=== PATIENT | male | born 1930 | race Caucasian/White ===

== ENCOUNTER 2016-06-03 12:32 | Emergency (ER) | payer MEDICARE, BC ==
[~2016-06-03] VITALS: Ht 167.6 cm; Wt 83.0 kg
[~2016-06-03 12:32] MED LIST: ALPR0.254 PO; ATEN50TA PO; CLOP75TA PO; DONE5TAB7 PO; FINA5TAB4 PO; INSU100I13 SQ; INSU100V SQ; OMEP20TA PO; PITA4TAB2 PO; TRAM50TA PO
[2016-06-03 13:29] LABS: BASO % 1 % (0-3); EOS % 1 % (0-3); HEMATOCRIT 31.2 % (39.0-53.0); HEMOGLOBIN 10.9 g/dL (13.0-17.5); LYMPH # 0.6 x10^3/uL (1.0-4.8); LYMPH % 17 % (24-48); MEAN CORPUSCULAR HEMOGLOBIN 32 pg (25-35); MEAN CORPUSCULAR HGB CONC 35 g/dL (31-37); MEAN CORPUSCULAR VOLUME 91 fL (79-100); MONO % 13 % (0-9); NEUT % 68 % (31-73); PLATELET COUNT 179 x10^3/uL (140-400); RED BLOOD COUNT 3.44 x10^6/uL (4.30-5.70); RED CELL DISTRIBUTION WIDTH 14.1 % (11.5-14.5); WHITE BLOOD COUNT 3.8 x10^3/uL (4.0-11.0)
[2016-06-03 13:35] LABS: CALCIUM 9.7 mg/dL (8.5-10.1); GFR 71.4; POTASSIUM 4.1 mmol/L (3.5-5.1)
[2016-06-03 13:36] LABS: ALBUMIN 3.9 g/dL (3.4-5.0); DIRECT BILIRUBIN 0.2 mg/dL (0.0-0.2); TOTAL BILIRUBIN 0.7 mg/dL (0.2-1.0); TOTAL PROTEIN 7.4 g/dL (6.4-8.2)
--- NOTE | 2016-06-03 13:37 | EKG ---
[facility] [address] [place] [address] Test Date: 2016-06-03 Test Time: 13:18:36 Pat Name: JOVAN CRUZ Department: Room: Gender: M Attending Psychiatrist: : [id number] Requested By: OLIVE POOLE Order Number: [id number] Reading MD: Amy Brunner Measurements Intervals [place] Rate: 76 P: 0 [place]: 166 QRS: -28 QRSD: 94 T: 17 QT: 360 QTc: 409 Interpretive Statements SINUS RHYTHM LEFTWARD AXIS QRS(T) CONTOUR ABNORMALITY CONSISTENT WITH ANTEROSEPTAL INFARCT PROBABLY OLD RI6.01 Unconfirmed report No previous ECG available for comparison Electronically Signed On 06-05-2016 10:56:51 CDT by Amy Brunner
[2016-06-03] MEDS ORDERED: IV NORMAL SALINE 500ML BAG 500 ML IV ONE (14:00)
[2016-06-03] MEDS ORDERED: HYDROMORPHONE 2 MG/ML VIAL. IV PRN (14:00)
[2016-06-03] MEDS ORDERED: ONDANSETRON PF 4 MG/2 ML VIAL. IV ONE (14:00)
--- NOTE | 2016-06-03 14:01 | RAD ---
Renal ultrasound, 06/03/2016: History: Left flank pain The right kidney measures 11.8 cm in length while the left kidney measures 12.4 cm. There is no evidence of hydronephrosis or a renal mass. No abnormal perinephric process is seen. The partially filled urinary bladder is unremarkable. Note is made that a small hyperdense nodule was seen in the lower pole of the right kidney on an outside CT study from 12/18/2015. This lack of visualization on the current exam is likely on a technical basis. IMPRESSION: 1. No significant renal abnormality is detected sonographically. 2. Nonemergent multiphase CT scanning of the kidneys is suggested for further evaluation of the right renal lesion noted on the old outside CT exam.
[2016-06-03] MEDS ORDERED: IOHEXOL 350 MG/ML 100ML VIAL. IV ONE (14:15)
[2016-06-03] MEDS ORDERED: HYDR-2666 PO (14:32)
[2016-06-03] MEDS ORDERED: ONDA4TAB10 SL (14:32)
--- NOTE | 2016-06-03 14:32 | PHYS DOC ---
Past Medical History Past Medical History: COPD, Dementia, Diabetes-Type II, Other Additional Past Medical Histor: hemochromatosis, aortic stenosis Past Surgical History: Knee Replacement, Other Additional Past Surgical Histo: rotator cuff Additional Information: chew Alcohol Use: None Drug Use: None Adult General Chief Complaint Chief Complaint: FLANK PAIN HPI HPI 85-year-old male presenting to the emergency department today with flank pain on the left. The pain is moderate intermittent has been present for approximately 3 months. Family is here today and reports the patient has a history of a renal mass on the left. He was supposed to get an MRI however because of being close pain is was unable to finish. His pain is moderate. He denies it being a ripping or tearing pain. He denies abdominal pain. He denies a history of aneurysm. His pain is moderate nonradiating and alleviated with taking tramadol. Review of systems is negative for hematuria history of kidney stones. Negative for chest pain shortness of breath nausea or vomiting. All other review of systems is negative unless otherwise noted in history of present illness. Review of Systems Review of Systems SEE ABOVE. Current Medications Current Medications Current Medications Medications (Trade) Dose Ordered Sig/Darrian Start Time Stop Time Status Last Admin Dose Admin Hydromorphone HCl (Dilaudid) 0.5 mg PRN Q1HR PRN 06/03/16 14:00 06/03/16 23:59 06/03/16 14:06 0.5 MG Iohexol (Omnipaque 350 Mg/ml) 90 ml 1X ONCE 06/03/16 14:15 06/03/16 14:17 DC 06/03/16 14:28 90 ML Ondansetron HCl 4 mg 4 mg 1X ONCE 06/03/16 14:00 06/03/16 14:02 DC 06/03/16 14:06 4 MG Sodium Chloride (Iv Sodium Chloride 0.9% 500ml Bag) 500 ml @ 500 mls/hr 1X ONCE 06/03/16 14:00 06/03/16 14:59 06/03/16 14:05 500 MLS/HR Allergies Allergies Allergies Coded Allergies Type Severity Reaction Last Updated Verified Penicillins Allergy Intermediate Hives 12/25/15 Yes aspirin Allergy Intermediate Shortness of Air 12/25/15 Yes Physical Exam Physical Exam Constitutional: Well developed, well nourished, no acute distress, non-toxic appearance. HENT: Normocephalic, atraumatic, bilateral external ears normal, oropharynx moist, no oral exudates, nose normal. [] Eyes: PERRLA, EOMI, conjunctiva normal, no discharge. [] Neck: Normal range of motion, no tenderness, supple, no stridor. Cardiovascular:Heart rate regular rhythm, no murmur [] Lungs & Thorax: Bilateral breath sounds clear to auscultation [] Abdomen: Bowel sounds normal, soft, no tenderness, no masses, no pulsatile masses. Skin: Warm, dry, no erythema, no rash. [] Back: No tenderness, patient has mild tenderness palpation of the left CVA area. Nontender midline. No ecchymosis lacerations or abrasions present. No evidence of traumatic injury. Extremities: No tenderness, no cyanosis, no clubbing, ROM intact, no edema. [] Neurologic: Alert and oriented X 3, normal motor function, normal sensory function, no focal deficits noted. [] Psychologic: Affect normal, judgement normal, mood normal. Current Patient Data Vital Signs Vital Signs Date Time Temp Pulse Resp B/P Pulse Ox O2 Delivery O2 Flow Rate FiO2 06/03/16 13:59 74 17 154/81 99 Room Air 06/03/16 13:04 97.5 97.5 Lab Values Laboratory Tests Test 06/03/16 13:00 White Blood Count 3.8x10^3/uL (4.0-11.0) L Red Blood Count 3.44x10^6/uL (4.30-5.70) L Hemoglobin 10.9g/dL (13.0-17.5) L Hematocrit 31.2% (39.0-53.0) L Mean Corpuscular Volume 91fL (79-100) Mean Corpuscular Hemoglobin 32pg (25-35) Mean Corpuscular Hemoglobin Concent 35g/dL (31-37) Red Cell Distribution Width 14.1% (11.5-14.5) Platelet Count 179x10^3/uL (140-400) Neutrophils (%) (Auto) 68% (31-73) Lymphocytes (%) (Auto) 17% (24-48) L Monocytes (%) (Auto) 13% (0-9) H Eosinophils (%) (Auto) 1% (0-3) Basophils (%) (Auto) 1% (0-3) Neutrophils # (Auto) 2.5x10^3uL (1.8-7.7) Lymphocytes # (Auto) 0.6x10^3/uL (1.0-4.8) L Monocytes # (Auto) 0.5x10^3/uL (0.0-1.1) Eosinophils # (Auto) 0.0x10^3/uL (0.0-0.7) Basophils # (Auto) 0.0x10^3/uL (0.0-0.2) Sodium Level 138mmol/L (136-145) Potassium Level 4.1mmol/L (3.5-5.1) Chloride Level 103mmol/L (98-107) Carbon Dioxide Level 27mmol/L (21-32) Anion Gap 8 (6-14) Blood Urea Nitrogen 20mg/dL (8-26) Creatinine 1.0mg/dL (0.7-1.3) Estimated GFR (Cockcroft-Gault) 71.4 Glucose Level 211mg/dL (70-99) H Lactic Acid Level 1.4mmol/L (0.4-2.0) Calcium Level 9.7mg/dL (8.5-10.1) Total Bilirubin 0.7mg/dL (0.2-1.0) Direct Bilirubin 0.2mg/dL (0.0-0.2) Aspartate Amino Transferase (AST) 15U/L (15-37) Alanine Aminotransferase (ALT) 13U/L (16-63) L Alkaline Phosphatase 57U/L (46-116) Troponin I Quantitative < 0.017ng/mL (0.000-0.055) WE-Ugq-V-Type Natriuretic Peptide 647pg/mL (0-449) H Total Protein 7.4g/dL (6.4-8.2) Albumin 3.9g/dL (3.4-5.0) Lipase 195U/L (73-393) Laboratory Tests 06/03/16 13:00 Laboratory Tests 06/03/16 13:00 EKG EKG EKG shows sinus rhythm. Bartley is leftward. Patient has mild prolongation of the QRS. Patient has S waves in lead V1 and V2 with repolarization Elevation and T- wave in lead V3. [] Upwards concavity of the ST segment. Radiology/Procedures Radiology/Procedures [] Course & Med Decision Making Course & Med Decision Making Pertinent Labs and Imaging studies reviewed. (See chart for details) 85-year-old male presenting to the emergency department today with left-sided flank pain. Vital signs afebrile normal heart rate. Blood pressure elevated. Physical exam shows mild left CVA tenderness otherwise unremarkable. No palpable mass in the abdomen. Nontender abdomen. EKG shows mild repolarization in the anterior lead. Patient denied chest pain or shortness of breath. He would be quite atypical for his EKG to represent the patient's left flank pain. In addition to this the patient's troponin is negative. Otherwise CBC shows mild leukopenia mild anemia. Chemistry panel otherwise unremarkable. Ultrasound of the left kidney shows small right renal lesion. Recommendation for outpatient follow-up. CT the abdomen pelvis negative for acute pathology. Patient discharged home with nausea and pain medication to follow up with PCP over the next 2-3 days. Dragon Disclaimer Dragon Disclaimer This electronic medical record was generated, in whole or in part, using a voice recognition dictation system. Departure Departure Impression: Primary Impression: Left flank pain Disposition: HOME, SELF-CARE Condition: STABLE Referrals: MANJU WRIGHT MD (PCP) Patient Instructions: Flank Pain Additional Instructions: Thank you for allowing us to participate in your care today. Followup with your primary care physician in 3 days if your symptoms do not improve. If you do not have a primary care provider you can ask for a list of our primary care providers. Return to the emergency department you have any new or concerning findings. This should be evaluated by the primary care physician and any necessary consulting services for continued management within a few days after discharge. Return to emergency room if you have any new or concerning symptoms including but not limited to fever, chills, nausea, vomiting, intractable pain, any new rashes, chest pain, shortness of air, uncontrolled bleeding, difficulty breathing, and/or vision loss. You may have been prescribed medication that can change in your level of thinking and ability to operate machinery. These medications include hydrocodone and Ativan. Also, Benadryl has been known to do this as well. Be sure to check with your pharmacist and ask if the medications you've prescribed can affect your level of consciousness. I recommend not operating heavy machinery or driving while on medication such as these. Scripts Ondansetron (Zofran Odt)4 Mg Tab.rapdis1 Tab SL PRN Q8HRS PRN NAUSEA #6 TAB Prov:OLIVE POOLE MD 06/03/16 Hydrocodone Bit/Acetaminophen (Hydrocodone-Apap 5-325 )1 Each Tablet1 Tab PO PRN Q6HRS PRN PAIN #15 TAB Be careful as this medication may cause you to be drowsy or tired. Do not drive on this medication. Prov:OLIVE POOLE MD 06/03/16 OLIVE POOLE MD Jun 03, 2016 14:32
[2016-06-03 15:00] LABS: BILIRUBIN,URINE NEGATIVE (NEG); GLUCOSE,URINE 250 mg/dL (NEG); NITRITE,URINE NEGATIVE (NEG); PH,URINE 6.5; PROTEIN,URINE 30 mg/dL (NEG-TRACE); UROBILINOGEN,URINE 0.2 mg/dL (0.2 mg/dL)
[2016-06-03 15:10] LABS: BACTERIA,URINE 0 /HPF (0-FEW); SQUAMOUS EPITHELIAL CELL,UR OCC /LPF
--- NOTE | 2016-06-03 15:18 | RAD ---
Indication: Left flank pain. Aortic stenosis. Technique: Precontrast imaging was performed. CT angiogram includes axial images and maximum intensity projection reformatted images. Volume rendered imaging was performed. 90 mL of intravenous Omnipaque 350 was administered without complication. No comparison is available. One or more of the following individualized dose reduction techniques were utilized for this examination: 1. Automated exposure control 2. Adjustment of the mA and/or kV according to patient size 3. Use of iterative reconstruction technique Findings: Precontrast imaging demonstrates no intramural hematoma. There is atheromatous disease within the aorta and iliac arteries. There is no aneurysm or dissection. There is no aortic stenosis. There is no narrowing of the celiac trunk or SMA origin. There is plaquing at the SMA origin. There is an accessory left renal artery. There is an accessory right renal artery as well. The 2 right renal arteries are similar in size. There is plaquing involving both right renal arteries, greater involvement of the inferior of the 2 right renal arteries. 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 MARICHUY is patent. There is atheromatous disease within both common iliac arteries without stenosis or aneurysm. Common femoral arteries are without stenosis or aneurysm. Timing of the bolus was to evaluate the aorta, not other structures. There is atelectasis or scarring in the lung bases. There is no pleural effusion. The heart is not enlarged. There is fatty infiltration of the liver. There is cholelithiasis. Spleen is not enlarged. Pancreas is unremarkable. Left adrenal nodule measures 12 mm and 33 Hounsfield units, indeterminate. Kidneys are symmetrically perfused. Lower pole lesion in the right kidney measures 14 mm and 91 Hounsfield units. There is no small bowel obstruction or mural thickening. There are diverticula in the colon. There are no findings of diverticulitis. Normal appendix is noted. There is a fat-containing umbilical hernia. Bladder is unremarkable. Prostate is enlarged. Prostate calcifications are noted. Calcified phleboliths are noted. There are degenerative changes in the spine. Impression: 1. Negative for abdominal aortic aneurysm or dissection. Negative for aortic stenosis. 2. Accessory right renal artery. Both right renal arteries are similar size, stenosis involving the inferior of the 2 right renal arteries approaching 50% is suspected. 3. Indeterminate right renal mass and left adrenal nodule, consider multiphase CT or MRI if there are no older studies with which to compare. 4. Diverticulosis in the colon. 5. Cholelithiasis.
[2016-06-03 15:29] VITALS: BP 150/75
== END 2016-06-03 15:40 | disposition home or self-care (01) ==
LOC: ER 12:32
DX: R10.9 Unspecified abdominal pain (principal); R11.0 Nausea; R03.0 Elevated blood-pressure reading, without diagnosis of hypertension; D72.819 Decreased white blood cell count, unspecified; D64.9 Anemia, unspecified; J44.9 Chronic obstructive pulmonary disease, unspecified; F03.90 Unspecified dementia, unspecified severity, without behavioral disturbance, psychotic disturbance, mood disturbance, and anxiety; E11.9 Type 2 diabetes mellitus without complications; F17.220 Nicotine dependence, chewing tobacco, uncomplicated; Z88.6 Allergy status to analgesic agent; Z88.0 Allergy status to penicillin
CPT/HCPCS: 36415; 74174; 76770; 80048; 80076; 81001; 83605; 83690; 83880; 84484; 85027; 93005; 96361; 96374; 96375; 99285; J1170; J2405; J7040; Q9967

== ENCOUNTER → 2016-07-17 | Outpatient (CLI) | payer MEDICARE, BC ==
[2016-07-17] VITALS (16 sets, daily range): BP systolic 118–168; BP diastolic 50–89
[~2016-07-17] VITALS: Ht 175.3 cm; Wt 83.0 kg
[~2016-07-17] MED LIST changes: +DONE5TAB7; +FENTANYL PF 100 MCG/2 ML VIAL. IV ONE; +FENTANYL PF 100 MCG/2 ML VIAL. ONE; +HYDR-2666 PO; +INSU100I11; +LIDOCAINE 1% / SOD BICARB 8.4% 20 ML VIAL. IJ ONE; +MIDAZOLAM HCL/PF 2 MG/2 ML VIAL. IV ONE; +MIDAZOLAM HCL/PF 2 MG/2 ML VIAL. ONE; +ONDA4TAB10 SL; +TIOT4MIS2; +TRAV5DRO
[2016-07-17 09:26] LABS: BASO % 1 % (0-3); EOS % 2 % (0-3); HEMOGLOBIN 10.3 g/dL (13.0-17.5); LYMPH # 0.8 x10^3/uL (1.0-4.8); LYMPH % 21 % (24-48); MEAN CORPUSCULAR HEMOGLOBIN 32 pg (25-35); MEAN CORPUSCULAR HGB CONC 35 g/dL (31-37); MEAN CORPUSCULAR VOLUME 90 fL (79-100); MONO % 15 % (0-9); NEUT % 62 % (31-73); PLATELET COUNT 176 x10^3/uL (140-400); RED BLOOD COUNT 3.21 x10^6/uL (4.30-5.70); RED CELL DISTRIBUTION WIDTH 14.4 % (11.5-14.5)
[2016-07-17 09:36] LABS: INR 1.1 (0.8-1.1); PROTHROMBIN TIME PATIENT 13.5 SEC (11.7-14.0)
--- NOTE | 2016-07-17 12:22 | PDOC ---
MODERATE SEDATION ASSESSMENT RISKS/ALTERNATIVES Risks/Alternatives Risks and alternatives of this type of sedation and procedure discussed with: RISK/ALTERNATIVES: Patient H & P ON CHART H & P H & P on chart and reviewed for co-morbid conditions and appropriate labs. H&P ON CHART: Yes STATUS PREG STATUS ASSESSED: N/A MEDS/ALLERGIES REVIEWED Meds/Allergies Reviewed Medications and Allergies including time and route of recently administered narcotics and sedatives. MEDS/ALLERGIES REVIEWED: Yes ASA RATING ASA RATING: II AIRWAY ASSESSMENT Airway Assessment Airway patency, oral function limitations, presence of caps, crowns, dentures, partials, and ability to extend neck assessed. AIRWAY ASSESSMENT: Yes MALLAMPATI SCORE MALLAMPATI SCORE: II PRE-SEDATION ASSESSMENT PRE-SEDATION ASSESSMENT: Yes DYLLAN CREWS MD Jul 17, 2016 12:22
--- NOTE | 2016-07-17 12:28 | PDOC1 ---
History and Physical Date of Procedure Date of Admission 07/17/[address] guided bx of small incidental, indeterminate 14mm right renal soft tissue mass Indication Indication 85 YO male with small rt renal mass seen incidentally on CTA done for flank/ back pain and to evaluate for possible AAA. Image guided bx requested for tissue diagnosis. Past Medical History Past Medical History See Nursing Pre procedure PMH Past Surgical History Past Surgical History See Nursing Pre procedure PSH Current Medications Current Medications Current Medications Lidocaine/Sodium Bicarbonate (Buffered Lidocaine 1%) 20 ml STK-MED ONCE IJ ; Start 07/17/16 at 09:39; Stop 07/17/16 at 09:40; Status DC Fentanyl Citrate (Fentanyl 2ml Vial) 100 mcg STK-MED ONCE .ROUTE ; Start at 09:51; Stop 07/17/16 at 09:52; Status DC Midazolam HCl (Versed) 2 mg STK-MED ONCE .ROUTE ; Start 07/17/16 at 09:51; Stop 07/17/16 at 09:52; Status DC Lidocaine/Sodium Bicarbonate (Buffered Lidocaine 1%) 20 ml 1X ONCE IJ Last administered on 07/17/16 10:44; Start 07/17/16 at 10:00; Stop 07/17/16 at 10:01 ; Status DC Midazolam HCl (Versed) 2 mg 1X ONCE IV Last administered on 07/17/16 10:44; Start 07/17/16 at 10:00; Stop 07/17/16 at 10:01; Status DC Fentanyl Citrate (Fentanyl 2ml Vial) 100 mcg 1X ONCE IV Last administered on 10:45; Start 07/17/16 at 10:00; Stop 07/17/16 at 10:01; Status DC Active Scripts Active Reported Humalog (Insulin Lispro) 100 Unit/1 Ml Insuln.pen Donepezil Hcl 5 Mg Tablet Spiriva Respimat (Tiotropium [place]) 4 Gm Mist.inhal DAILY Travatan Z (Travoprost) 5 Ml Drops Ad Clopidogrel (Clopidogrel Bisulfate) 75 Mg Tablet 1 Tab PO DAILY Livalo (Pitavastatin Calcium) 4 Mg Tablet 4 Mg PO HS Alprazolam 0.25 Mg Tablet 0.25 Mg PO PRN Q6HRS PRN Atenolol 50 Mg Tablet 75 Mg PO DAILY Finasteride 5 Mg Tablet 5 Mg PO DAILY Omeprazole 20 Mg Tablet.dr 20 Mg PO DAILY Tramadol Hcl 50 Mg Tablet 50 Mg PO Q4H PRN Lantus Solostar (Insulin Glargine,Hum.rec.anlog) 100 Unit/1 Ml Insuln.pen 30 Unit SQ DAILY07 Allergies Allergies: Coded Allergies: Penicillins (Verified Allergy, Intermediate, Hives, 12/25/15) aspirin (Verified Allergy, Intermediate, Shortness of Air, 12/25/15) Physical Exam Vital Signs Vital Signs Date Time Temp Pulse Resp B/P Pulse Ox O2 Delivery O2 Flow Rate FiO2 07/17/16 12:10 90 20 98 Room Air 07/17/16 09:35 98.0 153/81 98.0 Lungs: Clear to auscultation Heart: Regular rate Psych/Mental Status: Mental status NL Diagnostic Data/Imaging Images PMC CTA abdomen from 06/03/16 reviewed Assessment Assessment Incidental, indeterminate, lobulated, 14 mm rt renal mass of uncertain etiology Problems: Plan Plan Attempted CT guided bx for tissue Dx as requested by PCP DYLLAN CREWS MD Jul 17, 2016 12:28
--- NOTE | 2016-07-17 12:35 | PDOC ---
Exam Senior Lead Project Manager Senior Lead Project Manager Breanna Pre-Procedure Diagnosis Pre-Procedure Diagnosis Small 14 mm rt renal mass of ? etiology Post-Procedure Diagnosis Post-Procedure Diagnosis Same Procedure Performed Procedure Performed CT guided rt renal mass bx Type of Anesthesia Type of Anesthesia Local + Mod sedation Estimated Blood Loss EBL: Minimal Specimens Specimans 3 small 18G core bx fragments submitted to path in formalin---the small tissue fragments may prove nondiagnostic. Condition of Patient Condition of Patient Stable. No apparent complication. Disposition Disposition Home from [facility] post recovery, if no problems. F/u with Dr Hu. Full report to follow. Note: The small core bx fragments may prove nondiagnostic. DYLLAN CREWS MD Jul 17, 2016 12:34
--- NOTE | 2016-07-18 07:15 | RAD ---
CT-guided right kidney biopsy Indication: 85-year-old male who underwent CTA examination of abdomen for flank/back pain and to evaluate for possible abdominal aortic aneurysm. That study revealed an incidental, small, solid lesion within medial aspect of right kidney, just below hilum. CT-guided biopsy of the lesion has been requested by primary care physician for tissue diagnosis. Anesthesia: 32 minutes moderate sedation was provided utilizing a total of 1.5 mg Versed and 100 mcg fentanyl, IV. The patient was appropriately monitored by a qualified independent observer throughout the time of moderate sedation. Consent: The procedure was explained in its entirety to the patient and/or the patient's designated artist's representative by a member of the treatment team. This included a discussion of risks and benefits and acceptable alternatives to the procedure, as well as expected consequences of no treatment at all. Discussion of risks included, but was not limited to, those that are most frequent and those that are rare, but possibly severe or life-threatening, as well as the possibility of unforeseen complications. Procedure: Informed consent was obtained from the patient. He was placed supine on the CT scanner. Preliminary noncontrast CT images were obtained through kidneys. Those images confirmed the presence of a small 14 to 15 mm bi-lobed solid lesion, partially contained within medial right renal parenchyma, and partially exophytic. A right posterior skin site suitable for attempted biopsy of the exophytic compounded of the lesion was selected and marked. That area was prepped and draped in the usual sterile fashion. Moderate sedation was provided with IV Versed and fentanyl. Using aseptic technique, local anesthesia, and CT guidance, a 17-gauge guide needle was successfully advanced to anterior aspect of the exophytic component of the soft tissue lesion. A total of 3 18-gauge core biopsies were attempted. Those biopsies were productive of only small fragments of tissue, which were submitted in formalin to pathology. The small tissue fragments may prove nondiagnostic. Hemostasis was achieved with autologous clot introduced through the biopsy guide needle which was then removed. A sterile dressing was applied. Patient tolerated the procedure well without apparent complication. Completion CT images revealed no evidence of significant postbiopsy bleeding. Impression: Uneventful CT-guided biopsy of small right renal solid lesion, as described. Three core biopsies were performed, but were productive of only small fragments of tissue, which, unfortunately, may prove nondiagnostic. PQRS Compliance Statement: One or more of the following individualized dose reduction techniques was utilized for this procedure: 1. Automated exposure control. 2. Adjustment of MA and/or KV according to patient size. 3. Iterative reconstruction technique.
--- NOTE | 2016-07-19 13:19 | PATHOLOGY ---
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 (SEE COMMENT) COMMENT: This case is also reviewed by Dr. Sayra Waldrop. This case was discussed with Dr. Rafael Carlos on 07/19/2016 at 11am. (SHA:; d/t: 07/19/16) REPORT ELECTRONICALLY SIGNED BY: Musa Yip M.D. DATE/TIME: 07/19/2016 13:18 * * * * * * * * GROSS PATHOLOGY: Received in formalin labeled "Johan Cruz, right renal biopsy," are three distinct needle cores of white-santillan to red-brown soft tissue ranging from 0.8 to 1.7 cm in length, which are submitted entirely in cassette A1. (CAA; 07/18/2016) INITIAL CPT CODE(S): A; 50989 Professional services performed [place] [facility] [place] [address] Technical services performed by [facility] at [address] [place] [address]. SPECIMEN(S) RECEIVED: A.Right renal mass CLINICAL HISTORY: Small 15m indeterminate right renal mass, incidental finding on CT for flank pain/AAA PATIENT: JOHAN CRUZ /AGE: 10 1930 (Age: 85) PATIENT #: [id number] ALT CASE #: SPECIMEN COLLECTION DATE: 07/17/2016 SPECIMEN RECEIVED DATE: 07/17/2016 [facility] - [address] [place] [address] - PHONE: [phone] * * * END OF REPORT * * *
== END | disposition home or self-care (01) ==
LOC: INTRAD 08:43
PROVIDERS: ATTEND Family Medicine
DX: C64.1 Malignant neoplasm of right kidney, except renal pelvis (principal); E78.00 Pure hypercholesterolemia, unspecified; I10 Essential (primary) hypertension; K21.9 Gastro-esophageal reflux disease without esophagitis; E11.9 Type 2 diabetes mellitus without complications; F41.9 Anxiety disorder, unspecified; M19.90 Unspecified osteoarthritis, unspecified site; Z87.440 Personal history of urinary (tract) infections; Z72.89 Other problems related to lifestyle; Z72.0 Tobacco use
CPT/HCPCS: 36415; 50200; 77012; 82947; 85027; 85610; C1892; J2250; J3010; 88305